=== PATIENT | male | born 1980 ===

== ENCOUNTER 2017-08-19 09:31 | Emergency (ER) | payer SELFPAY ==
[2017-08-19] MEDS ORDERED: predniSONE TAB* 20 MG PO ONE (09:52)
[2017-08-19] MEDS ORDERED: Albuterol 2.5 MG/3 ML NEB.SOL* (0.083%) INH ONE (09:52)
[2017-08-19] MEDS ORDERED: Ipratropium 0.5MG/2.5ML NEB* 0.5 MG/2.5 ML NEB.SOLN INH ONE (09:52)
--- NOTE | 2017-08-19 10:21 | UC ---
Asthma HPI - HPI Summary HPI Summary: ONSET OF SOB AND WHEEZE LAST NIGHT WHILE AT REST. NO FEVER. IS AN ASTHMATIC BUT DOES NOT HAVE AN INHALER RIGHT NOW. WAS UP LAST NIGHT COUGHING. - History of Current Complaint Chief Complaint: UCAsthma Stated Complaint: ASTHMA ATTACK Time Seen by Provider: 08/19/17 09:47 Hx Obtained From: Patient Onset/Duration: Sudden Onset, Lasting Hours Timing: Constant Initial Severity: Moderate Current Severity: Moderate Pain Intensity: 5 Pain Scale Used: 0-10 Numeric Location/Character: Cough (Nonproductive) Aggravating Factor(s): Other Alleviating Factor(s): Nothing Associated Signs and Symptoms: Positive: Shortness of Breath - Allergy/Home Medications Allergies/Adverse Reactions: Allergies Allergy/AdvReac Type Severity Reaction Status Date / Time Aspirin Allergy Unknown Verified 08/19/17 11:12 Reaction Details Enviromental Allergy Runny Nose Uncoded 08/19/17 11:12 PMH/Surg Hx/FS Hx/Imm Hx Respiratory History: Asthma - Surgical History Surgical History: Yes Surgery Procedure, Year, and Place: hernia - Family History Known Family History: Negative: Hypertension - Social History Alcohol Use: Occasionally Substance Use Type: None Smoking Status (MU): Heavy Every Day Tobacco Smoker Review of Systems Constitutional: Negative Respiratory: Shortness Of Breath, Cough, Other - WHEEZE Cardiovascular: Negative Gastrointestinal: Negative All Other Systems Reviewed And Are Negative: Yes Physical Exam Triage Information Reviewed: Yes Appearance: No Pain Distress, Well-Nourished Vital Signs: Initial Vital Signs Temp 97 F 08/19/17 09:33 Pulse 117 08/19/17 09:33 Resp 20 08/19/17 09:33 BP 142/86 08/19/17 09:33 Pulse Ox 94 08/19/17 09:33 Vital Signs Reviewed: Yes Eyes: Positive: Conjunctiva Clear ENT: Positive: Hearing grossly normal, Pharynx normal, TMs normal Neck: Positive: Supple, Nontender, No Lymphadenopathy Respiratory: Positive: No respiratory distress, No accessory muscle use, Decreased breath sounds, Wheezing - DIFFUSE Cardiovascular: Positive: Tachycardia Abdomen Description: Positive: Soft Musculoskeletal: Positive: No Edema Neurological: Positive: Alert Psychological: Positive: Age Appropriate Behavior Skin: Negative: rashes Re-Evaluation - Re-Evaluation First Eval Re-Evaluation Time: 10:50 - FEELS BETTER AFTER DUONEB AND PREDNISONE. WHEEZE IMPROVED ON EXAM Change: Improved Asthma Course/Dx - Differential Dx/Diagnosis Provider Diagnoses: ASTHMA EXACERBATION Discharge - Discharge Plan Condition: Stable Disposition: HOME Prescriptions: Albuterol HFA INHALER* [Ventolin HFA Inhaler*] 2 puff INH Q4H PRN #1 mdi PRN Reason: Shortness Of Breath Azithromycin 500 mg PO DAILY #5 tab predniSONE TAB* [Deltasone TAB*] 50 mg PO DAILY #5 tab Patient Education Materials: Asthma (ED) Referrals: Monie Crawford MD [Primary Care Provider] - Additional Instructions: YOUR SYMPTOMS ARE LIKELY DUE TO AN ASTHMA EXACERBATION. TAKE THE PREDNISONE AND USE YOUR INHALER PRESCRIBED. IF YOURS SYMPTOMS ARE NOT IMPROVING IN A FEW DAYS GO AHEAD AND FILL RX FOR AZITHROMYCIN. GO TO THE ER WITHOUT FAIL IF YOU HAVE WORSENING SHORTNESS OF BREATH OR OF YOU DEVELOP FEVER, CHEST PAIN, DIZZINESS, NAUSEA OR ANY OTHER CONCERNING SYMPTOMS. CALL THE NUMBER BELOW FOR ASSISTANCE IN ESTABLISHING WITH A PCP An additional resource available to assist in finding the appropriate physician for your health care needs is [facility] ([facility]). You may contact them by calling [phone].
[2017-08-19] MEDS ORDERED: Ibuprofen TAB* 600 MG PO ONE (10:25)
[2017-08-19] MEDS ORDERED: Albuterol HFA INHALER* 8 gm MDI INH ONE (11:01)
== END 2017-08-19 11:32 | disposition home or self-care (01) ==
LOC: UCEAST 09:31
DX: J45.901 Unspecified asthma with (acute) exacerbation (principal); F17.200 Nicotine dependence, unspecified, uncomplicated; Z88.6 Allergy status to analgesic agent
CPT/HCPCS: 99203; A9270-GY; G0463; J7512; J7644